=== PATIENT | female | born 1945 | race Caucasian/White ===

== ENCOUNTER 2017-02-27 07:29 | Day surgery (SDC) | payer MEDICARE, MEDICAID ==
[~2017-02-27] VITALS: Ht 167.6 cm; Wt 70.7 kg
== END 2017-02-27 11:20 | disposition home or self-care (01) ==
LOC: RAD.S 07:29 → EDSTATUS 09:00 → RAD.S 09:00
PROC: 0BBC3ZX Excision of Right Upper Lung Lobe, Percutaneous Approach, Diagnostic (ICD-10-PCS; principal; 2017-02-27)
DX: C34.11 Malignant neoplasm of upper lobe, right bronchus or lung (principal); Z88.0 Allergy status to penicillin; Z88.1 Allergy status to other antibiotic agents; Z88.8 Allergy status to other drugs, medicaments and biological substances; Z79.82 Long term (current) use of aspirin; Z79.899 Other long term (current) drug therapy

== ENCOUNTER → 2017-02-28 | Outpatient (CLI) | payer MEDICARE, MEDICAID | END | disposition home or self-care (01) | LOC: RAD.S 10:00 | DX: R07.9 Chest pain, unspecified (principal); J93.9 Pneumothorax, unspecified ==

== ENCOUNTER → 2017-03-02 | Outpatient (CLI) | payer MEDICARE, MEDICAID | END | disposition home or self-care (01) | LOC: RAD.S 08:53 | DX: J93.9 Pneumothorax, unspecified (principal) ==

== ENCOUNTER → 2017-03-15 | Outpatient (CLI) | payer MEDICARE, MEDICAID | END | disposition home or self-care (01) | LOC: RESC 12:16 | DX: C50.919 Malignant neoplasm of unspecified site of unspecified female breast (principal); R91.1 Solitary pulmonary nodule; D05.90 Unspecified type of carcinoma in situ of unspecified breast; R94.2 Abnormal results of pulmonary function studies; F17.210 Nicotine dependence, cigarettes, uncomplicated ==

== ENCOUNTER → 2017-03-16 | Outpatient (CLI) | payer MEDICARE, MEDICAID | END | disposition home or self-care (01) | LOC: RAD.S 15:12 | DX: C34.90 Malignant neoplasm of unspecified part of unspecified bronchus or lung (principal); C50.919 Malignant neoplasm of unspecified site of unspecified female breast; R91.1 Solitary pulmonary nodule; J32.2 Chronic ethmoidal sinusitis ==